=== PATIENT | female | born 1995 | race Caucasian/White ===

== ENCOUNTER 2016-06-29 18:59 | Emergency (ER) | payer MEDICAID ==
[~2016-06-29] VITALS: Ht 182.9 cm; Wt 113.4 kg
[2016-06-29 19:00] VITALS: BP_SYST 143
[2016-06-29] MEDS ORDERED: KETOROLAC TROMETHAMINE 60 MG/2 ML VIAL IM ONE (21:00)
[2016-06-29] MEDS ORDERED: IBUPROFEN 800 MG TABLET PO ONE (21:30)
[2016-06-29 21:38] LABS: BILIRUBIN,URINE NEGATIVE (NEGATIVE); CLARITY/URINE CLEAR (CLEAR); COLOR,URINE YELLOW (YELLOW); GLUCOSE,URINE NEGATIVE (NEGATIVE); KETONES,URINE TRACE (NEGATIVE); LEUKOCYTE ESTERASE ,URINE NEGATIVE (NEGATIVE); NITRITE, URINE NEGATIVE (NEGATIVE); PROTEIN URINE 1+ (NEGATIVE); UROBILINOGEN,URINE 0.2 (0.2-1.0)
[2016-06-29 21:39] LABS: BLOOD, URINE TRACE (NEGATIVE)
[2016-06-29 21:42] VITALS: BP_SYST 143
[2016-06-29 21:53] LABS: BACTERIA,URINE MODERATE /HPF (None Seen); MUCUS,URINE 1+ /LPF (None Seen)
== END 2016-06-29 21:42 | disposition home or self-care (01) ==
LOC: SED 18:59
DX: S16.1XXA Strain of muscle, fascia and tendon at neck level, initial encounter (principal); V89.2XXA Person injured in unspecified motor-vehicle accident, traffic, initial encounter; Y93.89 Activity, other specified; Y92.410 Unspecified street and highway as the place of occurrence of the external cause; Y99.8 Other external cause status
CPT/HCPCS: 72040-TC; 81000-TC; 81025; 87086; 99285